=== PATIENT | female | born 1985 | race Two or more races ===

== ENCOUNTER 2017-06-20 12:55 | Emergency (ER) | payer MEDICAID, OTHER ==
[~2017-06-20] VITALS: Ht 157.5 cm; Wt 99.3 kg
[~2017-06-20 12:55] MED LIST: PREN27TA7 OR
[2017-06-20 15:03] VITALS: BP 112/74
[2017-06-20] MEDS ORDERED: traMADol HCL 50 MG TAB PO ONE (15:45)
== END 2017-06-20 15:50 | disposition home or self-care (01) ==
LOC: ER 12:55
DX: G89.29 Other chronic pain (principal); M79.672 Pain in left foot; Z79.899 Other long term (current) drug therapy; Z98.890 Other specified postprocedural states
CPT/HCPCS: 73630